=== PATIENT | male | born 1960 | race Caucasian/White ===

== ENCOUNTER 2016-11-04 03:44 | Emergency (ER) | payer OTHER ==
[~2016-11-04] VITALS: Ht 188 cm; Wt 99.8 kg
--- NOTE | ~2016-11-04 | CR226 ---
[facility]. [facility] A Service of [facility] & [facility] RADIOLOGY TEXT RESULTS PATIENT: DAVID GARZA LOCATION: SED : 58 UNIT #: [id number] AGE: [address]: Oswaldo Renee MD SEX: M ORDER DR: [id number] [place] [id number] E MR#: [id number] Acc #: [id number] NAME: DAVID GARZA : 1960 SEX: M STUDY DATE/TIME: 11/04/2016 5:07 UNIT: SED ROOM: STUDY DESCRIPTION: CR Shoulder 1 View Lt Attending Physician: Oswaldo Renee M.D. Ordering Physician: Oswaldo Renee M.D. Primary Care Physician: Natasha Raymond A.P.R.N. MEDICAL IMAGING REPORT This report is preliminary unless electronic signature is present. EXAM Post reduction left shoulder, 11/04/2016 (0507 hours). HISTORY Shoulder dislocation. Post reduction image. TECHNIQUE Single AP radiograph of the left shoulder. FINDINGS Left reverse total shoulder arthroplasty components appear well positioned following reduction of previously demonstrated shoulder dislocation. No visible fracture. Remainder of the exam is negative. IMPRESSION Successful reduction of dislocated left reverse total shoulder arthroplasty. Dictated by... Abhi Newell M.D. THIS IS AN ELECTRONICALLY VERIFIED REPORT Abhi Newell M.D. at 11/07/2016 11:07 PM BKW/parvin TD: 11/04/2016 14:16 JOB #: [id number] MEDICAL IMAGING REPORT Page 1 of 1
--- NOTE | ~2016-11-04 | CR226 ---
[facility] A Service [facility] RADIOLOGY TEXT RESULTS PATIENT: DAVID GARZA LOCATION: SED : 58 UNIT #: [id number] AGE: [address]: Oswaldo Renee MD SEX: M ORDER DR: [id number] [place] [id number] E MR#: [id number] Acc #: [id number] NAME: DAVID GARZA : 1960 SEX: M STUDY DATE/TIME: 11/04/2016 4:02 UNIT: SED ROOM: STUDY DESCRIPTION: CR Shoulder 1 View Lt Attending Physician: Oswaldo Renee M.D. Ordering Physician: Oswaldo Renee M.D. Primary Care Physician: Natasha Raymond A.P.R.N. MEDICAL IMAGING REPORT This report is preliminary unless electronic signature is present. EXAM Left shoulder 11/04/2016 HISTORY 56-year-old male with history of left shoulder arthroplasty surgery presenting to the ED with left shoulder pain present upon awakening tonight prior to arrival. Possible shoulder dislocation. TECHNIQUE Single AP radiograph of the left shoulder. Examination shows postoperative changes of reverse left total shoulder arthroplasty. The humeral component is dislocated superiorly in relation to the glenoid component. This is poorly assessed in single AP projection. No gross evidence of shoulder fracture. Degenerative changes are noted at the AC joint. IMPRESSION Dislocation of left shoulder arthroplasty. Dictated by... Abhi Newell M.D. THIS IS AN ELECTRONICALLY VERIFIED REPORT Abhi Newell M.D. at 11/07/2016 11:07 PM GRETA/lincoln TD: 11/04/2016 14:12 JOB #: [id number] MEDICAL IMAGING REPORT [facility] A Service [facility] RADIOLOGY TEXT RESULTS PATIENT: DAVID GARZA LOCATION: SED : 58 UNIT #: [id number] AGE: [address]: Oswaldo Renee MD SEX: M ORDER DR: Page 1 of 1
[~2016-11-04 03:44] MED LIST: ASPIRIN81 MG PO; CELEBREX PO; FERROUS SULFATE1 TAB PO; FLAGYL PO; HYDROCODON-ACE1 EAC5 PO; HYDROCODON-ACE1 EAC7 PO; IRON SUPPLEMENT1 TAB PO; LEVAQUIN PO; LISINOPRIL10 MG PO; LORTAB 101 TAB 10/5 PO; NAPROXEN PO; NEURONTIN300 MG PO; NO MEDICATIONS; PRILOSEC40 MG PO; TOPROL XL PO; ULTRAM PO; VICODIN 5/500 T1 TAB PO; ZESTORETIC 20/11 TAB PO; ZYRTEC PO
== END 2016-11-04 06:47 | disposition home or self-care (01) ==
LOC: SED 03:44
DX: S43.005A Unspecified dislocation of left shoulder joint, initial encounter (principal); I10 Essential (primary) hypertension; F17.200 Nicotine dependence, unspecified, uncomplicated; X50.1XXA Overexertion from prolonged static or awkward postures, initial encounter
CPT/HCPCS: 23650; 73020; 96374; 96375; 99283; J2250; J2270; J2405